=== PATIENT | male | born 1955 | race Caucasian/White ===

== ENCOUNTER 2018-06-06 10:58 | Inpatient (IN) | payer OTHER ==
[2018-06-06 11:27] VITALS: BMI 26.3
--- NOTE | 2018-06-06 13:41 | HP ---
COWS - Scale Resting Pulse: 0= [place] 80 or Below Sweatin= Chills/Flushing Restless Observation: 3= Extraneous Movement Pupil Size: 2= Moderately Dilated Bone or Joint Aches: 2= Severe Diffuse Aches Runny Nose/ Eye Tearin= Runny Nose/Eyes GI Upset > 30mins: 3= Vomiting/Diarrhea Tremor Observation: 2= Slight Tremor Visible Yawning Observation: 2= >3x During Session Anxiety or Irritability: 2=Irritable/Anxious Goose Flesh Skin: 0=Smooth Skin COWS Score: 19 Admission ROS BHS - HPI Chief Complaint: i need help to stop using heroin Allergies/Adverse Reactions: Allergies Allergy/AdvReac Type Severity Reaction Status Date / Time No Known Allergies Allergy Verified 06/06/18 13:16 History of Present Illness: this 62 years old male with heroin dependence,seeking detox,withdrawal symptom, last detox 07/09 [facility] hepatitis c under care of pcp htn weight loss nicotine dependence longest period of sobriety 1 year Exam Limitations: No Limitations - Ebola screening Have you traveled outside of the country in the last 21 days: No Have you had contact with anyone from an Ebola affected area: No Have you been sick,other than usual withdrawal symptoms: No Do you have a fever: No - Review of Systems Constitutional: Chills, Loss of Appetite, Malaise, Night Sweats, Changes in sleep, Weakness, Unintentional Wgt. Loss EENT: reports: Tearing, Nose Congestion Respiratory: reports: No Symptoms reported Cardiac: reports: No Symptoms Reported GI: reports: Diarrhea, Nausea, Vomiting, Abdominal cramping : reports: No Symptoms Reported Musculoskeletal: reports: Back Pain, Joint Pain, Muscle Pain, Joint Stiffness Integumentary: reports: Dryness Neuro: reports: Headache, Tremors Endocrine: reports: No Symptoms Reported Hematology: reports: No Symptoms Reported Psychiatric: reports: No Sypmtoms Reported, Judgement Intact, Mood/Affect Appropiate, Orientated x3 (insomnia) Other Systems: Reviewed and Negative Patient History - Patient Medical History Hx Asthma: No Hx Chronic Obstructive Pulmonary Disease (COPD): No Hx Cancer: No Hx Cardiac Disorders: No Hx Congestive Heart Failure: No Hx Hypertension: Yes (on meds.) Hx Hypercholesterolemia: No Hx Pacemaker: No HX Cerebrovascular Accident: No Hx Seizures: No Hx Dementia: No Hx Diabetes: No Hx Gastrointestinal Disorders: No Hx Liver Disease: No Hx Genitourinary Disorders: No Hx Sexually Transmitted Disorders: No Hx Renal Disease (ESRD): No Hx Thyroid Disease: No Hx Human Immunodeficiency Virus (HIV): No (last 09/08 negative) Hx Hepatitis C: Yes (under care md,no treatment yet) Hx Depression: Yes Hx Suicide Attempt: No Hx Bipolar Disorder: No Hx Schizophrenia: No Other Medical History: no suicidal,no homicidal - Patient Surgical History Past Surgical History: Yes Hx Appendectomy: Yes Hx Genitourinary Surgery: Yes (kidney stones) Other Surgical History: Sx for deviated septum. Cyst removed from R eye Anesthesia Reaction: No - PPD History Previous Implant?: Yes Documented Results: Negative w/o proof Implanted On Prior R Admission?: No PPD to be Administered?: Yes - Smoking Cessation Smoking history: Current every day smoker Have you smoked in the past 12 months: Yes Aproximately how many cigarettes per day: 10 Hx Chewing Tobacco Use: No Initiated information on smoking cessation: Yes 'Breaking Loose' booklet given: 06/06/18 - Substance & Tx. History Hx Alcohol Use: No Hx Substance Use: Yes Substance Use Type: Heroin Hx Substance Use Treatment: Yes ([facility] 07/09) - Substances Abused Heroin Route: Inhalation Frequency: Daily Amount used: 2-3bags Age of first use: 20 Date of Last Use: 06/06/18 Family Disease History - Family Disease History Family Disease History: Diabetes: Mother (hyperthyroidism), Other: Mother, Brother (hypothyroidism), Sister (hypothyroidism) Admission Physical Exam S - Vital Signs Vital Signs: Vital Signs - 24 hr 06/06/18 11:25 Temperature 97.9 F Pulse Rate 67 Respiratory 18 Rate Blood Pressure 143/82 - Physical General Appearance: Yes: Moderate Distress, Tremorous, Irritable, Sweating, Anxious HEENTM: Yes: Normal ENT Inspection, LISSY, Pharynx Normal Respiratory: Yes: Lungs Clear, Normal Breath Sounds, No Respiratory Distress Neck: Yes: Within Normal Limits, Supple, Trachea in good position Breast: Yes: Within Normal Limits Cardiology: Yes: Within Normal Limits, Regular Rhythm, Regular Rate, S1, S2 Abdominal: Yes: Within Normal Limits, Normal Bowel Sounds, Flat, Soft Genitourinary: Yes: Within Normal Limits Back: Yes: Within Normal Limits, Normal Inspection, Muscle Spasm Musculoskeletal: Yes: full range of Motion, Back pain, Muscle Pain Extremities: Yes: Tremors Neurological: Yes: 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, Fully Oriented, Alert, Motor Strength 5/5 Integumentary: Yes: Dry Lymphatic: Yes: Within Normal Limits - Diagnostic (1) Opioid dependence with withdrawal Current Visit: Yes Status: Acute (2) Nicotine dependence Current Visit: Yes Status: Acute (3) Weight loss Current Visit: Yes Status: Acute (4) Essential hypertension Current Visit: Yes Status: Acute (5) Hepatitis C Current Visit: Yes Status: Acute (6) Restless leg syndrome Current Visit: Yes Status: Acute Cleared for Admission [facility] - Detox or Rehab [facility] Level of Care: Medically Managed Detox Regimen/Protocol: Methadone [facility] Breath Alcohol Content Breath Alcohol Content: 0.003 Urine Drug Screen - Results Drug Screen Negative: No Urine Drug Screen Results: OPI-Opiates, BZO-Benzodiazepines, MTD-Methadone
[2018-06-06] MEDS ORDERED: hydrOXYzine PAMOATE 50 MG CAPSULE (FP) PO PRN (13:55)
[2018-06-06] MEDS ORDERED: MAG HYDROX/AL HYDROX/SIMETH 30 ML UNIT-DOSE CUP PO PRN (13:55)
[2018-06-06] MEDS ORDERED: LOPERAMIDE HCL 2 MG CAPSULE PO PRN (13:55)
[2018-06-06] MEDS ORDERED: MENTHOL/PHENOL 1 EACH UD MM PRN (13:55)
[2018-06-06] MEDS ORDERED: guaiFENesin/D-METHORPHAN HB 10 ML UNIT-DOSE CUPS PO PRN (13:55)
[2018-06-06] MEDS ORDERED: ACETAMINOPHEN 325 MG TABLET (FP) PO PRN (13:55)
[2018-06-06] MEDS ORDERED: MAGNESIUM HYDROX 2400MG/30ML ORAL SUSPENSION 30 ML CUP PO PRN (13:55)
[2018-06-06] MEDS ORDERED: IBUPROFEN 400 MG TABLET (FP) PO PRN (13:55)
[2018-06-06] MEDS ORDERED: P-EPHED 60MG/TRIPROLIDI 2.5MG TABLET PO PRN (13:55)
[2018-06-06] MEDS ORDERED: MAGNESIUM CITRATE 300 ML BOTTLE PO PRN (13:55)
[2018-06-06] MEDS ORDERED: METHADONE HCL 10 MG TABLET (FOR DETOX USE ONLY) PO ONE ×2 (14:20→23:00)
[2018-06-06] MEDS: diazePAM 5 MG TABLET PO PRN (15:41)
--- NOTE | 2018-06-06 18:20 | CONSULT ---
[facility] Psychiatric Consult - Data Date of interview: 06/06/18 Admission source: [facility] Identifying data: First admission to [facility] for this 62 y/o male seeking detox treatment on for heroin dependence.Patient is single without children,domiciled and currently employed. Substance Abuse History: Discussed in this interview.Heroin dependence confirmed by the patient.Smoking history: Current every day smoker. Have you smoked in the past 12 months: Yes. Aproximately how many cigarettes per day: 10. Hx Chewing Tobacco Use: No. Initiated information on smoking cessation: Yes. 'Breaking Loose' booklet given: 06/06/18. - Substance & Tx. History. Hx Alcohol Use: No. Hx Substance Use: Yes. Substance Use Type: Heroin. Hx Substance Use Treatment: Yes ([facility] 07/09). - Substances Abused. Heroin. Route: Inhalation. Frequency: Daily. Amount used: 2-3bags. Age of first use: 20. Date of Last Use: 06/06/18 Medical History: Hepatitis C,hypertension and a history of lithotripsy. Psychiatric History: No reported history of psychiatric hospitalizations.However , the patient is currently seeing a private psychiatrist to address depression and anxiety.Diagnosed with PTSD.Managed on a regimen of trazodone 100 mg/hs + zoloft 50 mg/day.Mr Arias appears to be a reliable historian.He reports adequate adherence to his medications.No history of suicide attempts. Physical/Sexual Abuse/Trauma History: Patient declines to discuss childhood events.As a [place] resident and living close to the [place],Mr Arias witnessed the tragedy unfolding.Admits to episodic flashbacks. Additional Comment: Urine Drug Screen Results: OPI-Opiates, BZO-Benzodiazepines , MTD-Methadone.Noted. Mental Status Exam - Mental Status Exam Alert and Oriented to: Time, Place, Person Cognitive Function: Good Patient Appearance: Well Groomed (neat) Mood: Withdrawn, Anxious, Hopeful Affect: Mood Congruent, Constricted Patient Behavior: Fatigued, Appropriate, Cooperative Speech Pattern: Clear (bilingual), Appropriate Voice Loudness: Normal Thought Process: Intact, Goal Oriented Thought Disorder: Not Present Hallucinations: Denies Suicidal Ideation: Denies Homicidal Ideation: Denies Insight/Judgement: Fair Sleep: Poorly, Difficulty falling asleep Appetite: Good Muscle strength/Tone: Normal Gait/Station: Normal Psychiatric Findings - Problem List ([place] 1, 2,3) (1) Opioid dependence with withdrawal Current Visit: Yes Status: Acute (2) Nicotine dependence Current Visit: Yes Status: Acute (3) Substance induced mood disorder Current Visit: Yes Status: Acute (4) Post traumatic stress disorder (PTSD) Current Visit: Yes Status: Chronic (5) Insomnia Current Visit: Yes Status: Acute - Initial Treatment Plan Initial Treatment Plan: Psycjhoeducation.Sleep hygiene discussed in session.Detoxification in progress.Medications resumed at patient's request : trazodone 50 mg po hs + zoloft 50 mg po daily.Side effects/benefits of both drugs are discussed with the patient.Made, in particular, aware of potential for priapism,sexual dysfunction and suicidal ideation.Patient endorses god response to his medications and no history of advrese events.Agrees with plan of care.Observation.
[2018-06-06] MEDS ORDERED: MELATONIN 5 MG TABLETS PO PRN (22:00)
[2018-06-06] MEDS ORDERED: traZODone HCL 100 MG TABLET (FP) PO SCH (22:00)
[2018-06-06] MEDS: PRAMIPEXOLE DIHYDROCHLORIDE 0.25 MG TABLET PO SCH (22:20)
[2018-06-06] MEDS: THIAMINE HCL 100 MG TABLET (FP) PO SCH (22:20)
[2018-06-06] MEDS: traZODone HCL 50 MG TABLET (FP) PO SCH (22:20)
[2018-06-07 09:38] LABS: HEMATOCRIT 37.3 % (35.4-49); HEMOGLOBIN 12.6 GM/dL (11.7-16.9); MCH 33.2 pg (25.7-33.7); MCHC 33.9 g/dl (32.0-35.9); MEAN CELL VOLUME 98.1 fl (80-96); PLATELET COUNT 153 K/MM3 (134-434); RBC 3.81 M/mm3 (4.00-5.60); RDW 15.7 % (11.9-15.9); WHITE BLOOD COUNT 6.7 K/mm3 (4.0-10.0)
[2018-06-07 09:47] LABS: CHLORIDE 105 mmol/L (98-107); POTASSIUM 5.4 mmol/L (3.5-5.1); SODIUM 140 mmol/L (136-145)
[2018-06-07 09:56] LABS: ALBUMIN 2.9 g/dl (3.4-5.0); ALK PHOS 156 U/L (45-117); ANION GAP 5 (8-16); BILIRUBIN,TOTAL 0.6 mg/dL (0.2-1.0); BLOOD UREA NITROGEN 18 mg/dL (7-18); CALCIUM 8.8 mg/dL (8.5-10.1); CO2 30 mmol/L (21-32); CREATININE 0.9 mg/dL (0.7-1.3); GLUCOSE,RANDOM 115 mg/dL (74-106); SGOT/AST 164 U/L (15-37); SGPT/ALT 155 U/L (12-78); TOT PROT 6.1 g/dl (6.4-8.2)
[2018-06-07] MEDS ORDERED: METHADONE HCL 10 MG TABLET (FOR DETOX USE ONLY) PO ONE (10:00)
--- NOTE | 2018-06-07 10:02 | EKG ---
Test Reason : Blood Pressure : / mmHG Vent. Rate : 057 BPM Atrial Rate : 057 BPM P-R Int : 092 ms QRS Dur : 086 ms QT Int : 418 ms P-R-T Axes : -11 082 060 degrees QTc Int : 406 ms SINUS BRADYCARDIA WITH SHORT WI OTHERWISE NORMAL ECG NO PREVIOUS ECGS AVAILABLE Confirmed by JUAN JOSE VALDERRAMA, VIOLET ([id number]) on 06/07/2018 10:02:47 AM Referred By: Confirmed By:VIOLET INGRAM MD
[2018-06-07] MEDS: ASPIRIN 81 MG CHEWABLE TABLETS PO SCH (10:09)
[2018-06-07] MEDS: diazePAM 5 MG TABLET PO PRN ×2 (10:09→22:24)
[2018-06-07] MEDS: PRENATAL VITAMINS W/ FOLIC ACID TABLET (FP) PO SCH (10:09)
[2018-06-07] MEDS: PRAMIPEXOLE DIHYDROCHLORIDE 0.25 MG TABLET PO SCH ×2 (10:09→22:25)
[2018-06-07] MEDS: SERTRALINE HCL 50 MG TABLET (FP) PO SCH (10:09)
[2018-06-07] MEDS: LISINOPRIL 5 MG TABLET (FP) PO SCH (10:09)
--- NOTE | 2018-06-07 10:51 | PN ---
BHS COWS - Scale Resting Pulse: 0= [place] 80 or Below Sweatin= Chills/Flushing Restless Observation: 3= Extraneous Movement Pupil Size: 0= Normal to Room Light Bone or Joint Aches: 1= Mild Discomfort Runny Nose/ Eye Tearin= None GI Upset > 30mins: 0= None Tremor Observation of Outstretched Hands: 1= Tremor [place], Not Seen Yawning Observation: 0= None Anxiety or Irritability: 2=Irritable/Anxious Goose Flesh Skin: 0=Smooth Skin COWS Score: 8 S Progress Note (SOAP) Subjective: C/O MILD WITHDRAWAL SX-ANXIETY,FATIGUE. Objective: 06/07/18 10:49 Vital Signs 06/07/18 06/07/18 06/07/18 03:30 06:30 09:00 Temperature 97.8 F 98.4 F Pulse Rate 67 69 Respiratory 18 18 18 Rate Blood Pressure 107/66 104/65 Laboratory Tests 06/07/18 06/07/18 06:00 06:00 WBC 6.7 RBC 3.81 L Hgb 12.6 Hct 37.3 MCV 98.1 H MCH 33.2 MCHC 33.9 RDW 15.7 Plt Count 153 MPV 10.0 Sodium 140 Potassium 5.4 H Chloride 105 Carbon Dioxide 30 Anion Gap 5 L BUN 18 Creatinine 0.9 Creat Clearance w eGFR > 60 Random Glucose 115 H Calcium 8.8 Total Bilirubin 0.6 AST 164 H ALT 155 H Alkaline Phosphatase 156 H Total Protein 6.1 L Albumin 2.9 L CMP ABNORMAL K+ = 5.4 ELEVATED AST/ALT/ALK PHOS Assessment: 06/07/18 10:50 WITHDRAWAL SX Plan: CONTINUE DETOX INCREASE PO FLUIDS REPEAT CMP IN AM
[2018-06-07] MEDS: THIAMINE HCL 100 MG TABLET (FP) PO SCH (22:24)
[2018-06-07] MEDS: traZODone HCL 50 MG TABLET (FP) PO SCH (22:25)
[2018-06-08] MEDS: diazePAM 5 MG TABLET PO PRN ×3 (05:31→22:29)
[2018-06-08] MEDS ORDERED: METHADONE HCL 5 MG TABLET (FOR DETOX USE ONLY) PO ONE (10:00)
[2018-06-08] MEDS: LISINOPRIL 5 MG TABLET (FP) PO SCH (10:13)
[2018-06-08] MEDS: ASPIRIN 81 MG CHEWABLE TABLETS PO SCH (10:13)
[2018-06-08] MEDS: SERTRALINE HCL 50 MG TABLET (FP) PO SCH (10:13)
[2018-06-08] MEDS: PRENATAL VITAMINS W/ FOLIC ACID TABLET (FP) PO SCH (10:13)
[2018-06-08] MEDS: PRAMIPEXOLE DIHYDROCHLORIDE 0.25 MG TABLET PO SCH ×2 (10:14→22:29)
--- NOTE | 2018-06-08 10:38 | PN ---
BHS COWS - Scale Resting Pulse: 0= [place] 80 or Below Sweatin=Flushed/Facial Moisture Restless Observation: 3= Extraneous Movement Pupil Size: 2= Moderately Dilated Bone or Joint Aches: 1= Mild Discomfort Runny Nose/ Eye Tearin= None GI Upset > 30mins: 0= None Tremor Observation of Outstretched Hands: 1= Tremor [place], Not Seen Yawning Observation: 1= 1-2x During Session Anxiety or Irritability: 1=Feels Anxious/Irritable Goose Flesh Skin: 0=Smooth Skin COWS Score: 11 BHS Progress Note (SOAP) Subjective: ANXIETY,IRRITABILITY,SWEATS. Objective: 06/08/18 10:40 Vital Signs 06/08/18 06/08/18 06/08/18 03:30 06:17 06:30 Temperature 98.8 F Pulse Rate 66 66 Respiratory 18 16 Rate Blood Pressure 111/60 06/08/18 09:46 Temperature 97.5 F L Pulse Rate 76 Respiratory 18 Rate Blood Pressure 115/70 Laboratory Tests 06/07/18 06/07/18 06/07/18 06:00 06:00 06:00 WBC 6.7 RBC 3.81 L Hgb 12.6 Hct 37.3 MCV 98.1 H MCH 33.2 MCHC 33.9 RDW 15.7 Plt Count 153 MPV 10.0 Sodium 140 Potassium 5.4 H Chloride 105 Carbon Dioxide 30 Anion Gap 5 L BUN 18 Creatinine 0.9 Creat Clearance w eGFR > 60 Random Glucose 115 H Calcium 8.8 Total Bilirubin 0.6 AST 164 H ALT 155 H Alkaline Phosphatase 156 H Total Protein 6.1 L Albumin 2.9 L RPR Titer Nonreactive REPEAT CMP RESULTS PENDING Assessment: 06/08/18 10:40 WITHDRAWAL SX Plan: CONTINUE DETOX UA SPECIMEN STILL TO BE COLLECTED FROM PATIENT
[2018-06-08 10:47] LABS: ALBUMIN 2.4 g/dl (3.4-5.0); ANION GAP 7 (8-16); BLOOD UREA NITROGEN 10 mg/dL (7-18); CALCIUM 7.9 mg/dL (8.5-10.1); CHLORIDE 105 mmol/L (98-107); CO2 28 mmol/L (21-32); CREATININE 0.7 mg/dL (0.7-1.3); GLUCOSE,RANDOM 90 mg/dL (74-106); SGOT/AST 181 U/L (15-37); SGPT/ALT 134 U/L (12-78); SODIUM 140 mmol/L (136-145)
[2018-06-08 10:48] LABS: ALK PHOS 177 U/L (45-117); BILIRUBIN,TOTAL 0.5 mg/dL (0.2-1.0); TOT PROT 5.6 g/dl (6.4-8.2)
[2018-06-08] MEDS: traZODone HCL 50 MG TABLET (FP) PO SCH (22:29)
[2018-06-08] MEDS: THIAMINE HCL 100 MG TABLET (FP) PO SCH (22:29)
[2018-06-09] MEDS ORDERED: METHADONE HCL 5 MG TABLET (FOR DETOX USE ONLY) PO ONE (10:00)
[2018-06-09] MEDS: PRAMIPEXOLE DIHYDROCHLORIDE 0.25 MG TABLET PO SCH ×2 (10:12→22:11)
[2018-06-09] MEDS: ASPIRIN 81 MG CHEWABLE TABLETS PO SCH (10:12)
[2018-06-09] MEDS: PRENATAL VITAMINS W/ FOLIC ACID TABLET (FP) PO SCH (10:12)
[2018-06-09] MEDS: SERTRALINE HCL 50 MG TABLET (FP) PO SCH (10:13)
[2018-06-09] MEDS: LISINOPRIL 5 MG TABLET (FP) PO SCH (10:13)
[2018-06-09] MEDS: diazePAM 5 MG TABLET PO PRN (10:14)
--- NOTE | 2018-06-09 16:08 | PN ---
BHS COWS - Scale Resting Pulse: 2= [place] 101-120 Sweatin= Chills/Flushing Restless Observation: 1= Difficult to Sit Still Pupil Size: 0= Normal to Room Light Bone or Joint Aches: 2= Severe Diffuse Aches Runny Nose/ Eye Tearin= None GI Upset > 30mins: 1= Stomach Cramp Tremor Observation of Outstretched Hands: 0= None Yawning Observation: 1= 1-2x During Session Anxiety or Irritability: 2=Irritable/Anxious Goose Flesh Skin: 3=[place]il[place] COWS Score: 13 BHS Progress Note (SOAP) Subjective: Fatigue, Body Aches, Sweating. Objective: PATIENT A & O X 3, OBSERVED AMBULATING ON UNIT. NO ACUTE DISTRESS. 06/09/18 16:01 Vital Signs Temperature 97.8 F 06/09/18 13:43 Pulse Rate 73 06/09/18 13:43 Respiratory Rate 18 06/09/18 13:43 Blood Pressure 102/60 06/09/18 13:43 O2 Sat by Pulse Oximetry (%) Laboratory Tests 06/07/18 06/07/18 06/07/18 06:00 06:00 06:00 WBC 6.7 RBC 3.81 L Hgb 12.6 Hct 37.3 MCV 98.1 H MCH 33.2 MCHC 33.9 RDW 15.7 Plt Count 153 MPV 10.0 Sodium 140 Potassium 5.4 H Chloride 105 Carbon Dioxide 30 Anion Gap 5 L BUN 18 Creatinine 0.9 Creat Clearance w eGFR > 60 Random Glucose 115 H Calcium 8.8 Total Bilirubin 0.6 AST 164 H ALT 155 H Alkaline Phosphatase 156 H Total Protein 6.1 L Albumin 2.9 L RPR Titer Nonreactive 06/08/18 07:00 WBC RBC Hgb Hct MCV MCH MCHC RDW Plt Count MPV Sodium 140 Potassium 4.0 D Chloride 105 Carbon Dioxide 28 Anion Gap 7 L BUN 10 Creatinine 0.7 Creat Clearance w eGFR > 60 Random Glucose 90 D Calcium 7.9 L Total Bilirubin 0.5 AST 181 H ALT 134 H Alkaline Phosphatase 177 H D Total Protein 5.6 L Albumin 2.4 L RPR Titer LABS NOTED. UA RESULTS PENDING. 06/09/18 16:08 Assessment: 06/09/18 16:01 WITHDRAWAL SYMPTOMS. Plan: CONTINUE DETOX.
[2018-06-09] MEDS: traZODone HCL 50 MG TABLET (FP) PO SCH (22:11)
[2018-06-09] MEDS: THIAMINE HCL 100 MG TABLET (FP) PO SCH (22:11)
[2018-06-10] MEDS ORDERED: METHADONE HCL 10 MG TABLET (FOR DETOX USE ONLY) PO ONE (10:00)
[2018-06-10] MEDS: LISINOPRIL 5 MG TABLET (FP) PO SCH (10:08)
[2018-06-10] MEDS: PRENATAL VITAMINS W/ FOLIC ACID TABLET (FP) PO SCH (10:08)
[2018-06-10] MEDS: ASPIRIN 81 MG CHEWABLE TABLETS PO SCH (10:08)
[2018-06-10] MEDS: SERTRALINE HCL 50 MG TABLET (FP) PO SCH (10:08)
[2018-06-10] MEDS: PRAMIPEXOLE DIHYDROCHLORIDE 0.25 MG TABLET PO SCH ×2 (10:09→22:28)
[2018-06-10 10:18] LABS: URINE APPEARANCE CLEAR; URINE BILIRUBIN NEGATIVE (<2.0 mg/dL); URINE COLOR LTYELLOW; URINE GLUCOSE (UA) NEGATIVE (NEGATIVE); URINE KETONE NEGATIVE (NEGATIVE); URINE LEUK ESTERASE NEGATIVE (NEGATIVE); URINE NITRITE NEGATIVE (NEGATIVE); URINE PROTEIN NEGATIVE (NEGATIVE)
--- NOTE | 2018-06-10 14:29 | PN ---
BHS Progress Note (SOAP) Subjective: Tremor, interrupted sleep Objective: 06/10/18 14:25 Last Vital Signs Temp Pulse Resp BP Pulse Ox 96.7 F L 75 16 108/75 06/10/18 09:36 06/10/18 09:36 06/10/18 09:36 06/10/18 09:36 Laboratory Tests 06/07/18 06/07/18 06/07/18 06:00 06:00 06:00 WBC 6.7 RBC 3.81 L Hgb 12.6 Hct 37.3 MCV 98.1 H MCH 33.2 MCHC 33.9 RDW 15.7 Plt Count 153 MPV 10.0 Sodium 140 Potassium 5.4 H Chloride 105 Carbon Dioxide 30 Anion Gap 5 L BUN 18 Creatinine 0.9 Creat Clearance w eGFR > 60 Random Glucose 115 H Calcium 8.8 Total Bilirubin 0.6 AST 164 H ALT 155 H Alkaline Phosphatase 156 H Total Protein 6.1 L Albumin 2.9 L Urine Color Urine Appearance Urine pH Ur Specific [place] Urine Protein Urine Glucose (UA) Urine Ketones Urine Blood Urine Nitrite Urine Bilirubin Urine Urobilinogen Ur Leukocyte Esterase RPR Titer Nonreactive 06/08/18 06/10/18 07:00 08:10 WBC RBC Hgb Hct MCV MCH MCHC RDW Plt Count MPV Sodium 140 Potassium 4.0 D Chloride 105 Carbon Dioxide 28 Anion Gap 7 L BUN 10 Creatinine 0.7 Creat Clearance w eGFR > 60 Random Glucose 90 D Calcium 7.9 L Total Bilirubin 0.5 AST 181 H ALT 134 H Alkaline Phosphatase 177 H D Total Protein 5.6 L Albumin 2.4 L Urine Color Ltyellow Urine Appearance Clear Urine pH 8.0 Ur Specific [place] 1.006 Urine Protein Negative Urine Glucose (UA) Negative Urine Ketones Negative Urine Blood Negative Urine Nitrite Negative Urine Bilirubin Negative Urine Urobilinogen 2.0 Ur Leukocyte Esterase Negative RPR Titer Labs reviewed Assessment: 06/10/18 14:29 Withdrawal symptoms Plan: Continue detox
[2018-06-10] MEDS: traZODone HCL 50 MG TABLET (FP) PO SCH (22:28)
[2018-06-10] MEDS: THIAMINE HCL 100 MG TABLET (FP) PO SCH (22:28)
[2018-06-11] MEDS ORDERED: METHADONE HCL 5 MG TABLET (FOR DETOX USE ONLY) PO ONE (06:00)
[2018-06-11 09:15] VITALS: BP 91/57; PULSE 53; TEMP 97
--- NOTE | 2018-06-11 10:55 | PN ---
S Progress Note (SOAP) Subjective: Offers no complaints Objective: 06/11/18 10:52 A & O x 3, no acute distress noted Last Vital Signs Temp Pulse Resp BP Pulse Ox 97 F L 53 L 20 91/57 06/11/18 09:14 06/11/18 09:14 06/11/18 09:14 06/11/18 09:14 Assessment: 06/11/18 10:54 Detox safely and successfully completed Plan: for discharge
--- NOTE | 2018-06-11 11:00 | DS ---
[facility] Detox Discharge Summary Admission Date: 06/06/18 Discharge Date: 06/11/18 - History Additional Comments: pt for discharge. In stable condition, no complaints offered, no s/s of withdrawal noted Pt [facility] States he does not need med refill as he still has all meds [facility] the [facility]. States also that he will continue aftercare at the place. Pertinent Past History: Hep C Restless leg syndrome HTN - Physical Exam Results Vital Signs: Vital Signs Temperature 97 F L 06/11/18 09:14 Pulse Rate 53 L 06/11/18 09:14 Respiratory Rate 06/11/18 09:14 Blood Pressure 91/57 06/11/18 09:14 O2 Sat by Pulse Oximetry (%) Pertinent Admission Physical Exam Findings: withdrawal sx - Treatment Hospital Course: Detox Protocol Followed, Detoxed Safely, Responded well, Discharged Condition Good Patient has Accepted a Rehab Referral to: [facility], [place] - Medication Discharge Medications: Ambulatory Orders Aspirin [ASA -] 81 mg PO DAILY 06/06/18 Clotrimazole [Antifungal] 30 gm TP BID 06/06/18 Cyanocobalamin (Vitamin B-12) [B-12] 2,500 mcg SL DAILY 06/06/18 Lisinopril [Prinivil] 5 mg PO DAILY 06/06/18 Pramipexole Dihydrochloride [Mirapex -] 0.25 mg PO BID 06/06/18 Sertraline HCl [Zoloft -] 50 mg PO DAILY 06/06/18 Sodium Chloride/Nahco3/KCl/Peg [Gavilyte-N Solution] 4,000 ml PO DAILY 06/06/18 traZODone HCL [Trazodone HCl] 100 mg PO HS 06/06/18 Sertraline HCl [Zoloft -] 50 mg PO DAILY #30 tablet 06/08/18 traZODone HCL [Trazodone HCl] 50 mg PO HS #30 tablet 06/08/18 - Diagnosis (1) Elevated liver function tests Current Visit: Yes Status: Chronic (2) Insomnia Current Visit: Yes Status: Chronic (3) Opioid dependence with withdrawal Current Visit: Yes Status: Acute (4) Restless leg syndrome Current Visit: Yes Status: Chronic (5) Substance induced mood disorder Current Visit: Yes Status: Chronic (6) Weight loss Current Visit: Yes Status: Acute (7) Essential hypertension Current Visit: Yes Status: Chronic (8) Hepatitis C Current Visit: Yes Status: Chronic Qualifiers: Viral hepatitis chronicity: chronic Hepatic coma status: without hepatic coma Qualified Code(s): B18.2 - Chronic viral hepatitis C (9) Nicotine dependence Current Visit: Yes Status: Chronic Qualifiers: Nicotine product type: cigarettes Substance use status: in withdrawal Qualified Code(s): F17.213 - Nicotine dependence, cigarettes, with withdrawal - AMA Did Patient Leave Against Medical Advice: No
== END 2018-06-11 10:52 | disposition home or self-care (01) | DRG 773 ==
LOC: YASAS 10:58 → Y3N 13:45
PROVIDERS: ADMIT Surgery; ATTEND Surgery
PROC: HZ2ZZZZ Detoxification Services for Substance Abuse Treatment (ICD-10-PCS; principal; 2018-06-06)
DX: F11.23 Opioid dependence with withdrawal (principal); F17.213 Nicotine dependence, cigarettes, with withdrawal; F19.24 Other psychoactive substance dependence with psychoactive substance-induced mood disorder; F43.10 Post-traumatic stress disorder, unspecified; I10 Essential (primary) hypertension; G47.00 Insomnia, unspecified; G25.81 Restless legs syndrome; R94.5 Abnormal results of liver function studies; B18.2 Chronic viral hepatitis C; E87.5 Hyperkalemia; Z87.898 Personal history of other specified conditions
CPT/HCPCS: 36415; 80053; 81003; 85027; 86593; 93005; 93010